=== PATIENT | female | born 1965 | race African-American/Black ===

== ENCOUNTER 2017-02-03 21:53 | Emergency (ER) | payer SELFPAY ==
[~2017-02-03] VITALS: Ht 167.6 cm; Wt 86.5 kg
[2017-02-04] MEDS ORDERED: BACITRACIN ZINC OINT UDPKT TOP ONE (01:00)
[2017-02-04] MEDS ORDERED: HYDROCODONE/ACETAMINOPHEN 5/325MG TABLET PO ONE (01:00)
[2017-02-04] MEDS ORDERED: TETANUS, DIPHTHERIA, PERTUSSIS VAC/PF 0.5ML (>7YR OLD) IM ONE (01:00)
[2017-02-04] MEDS ORDERED: LIDOCAINE HCL/EPINEPHRINE 1%-EPI 1:100,000 20 ML VIAL MC ONE (01:00)
[2017-02-04 07:45] VITALS: BP 118/67
[2017-02-04 08:10] LABS: BASOPHILS % 0.3 % (0.0-2.0); EOSINOPHILS % 0.5 % (0.0-5.0); HEMATOCRIT. 38.7 % (36.0-48.0); HEMOGLOBIN. 12.7 g/dL (12.0-16.0); LYMPHOCYTES % 30.5 % (20.0-50.0); MEAN CORPUSCULAR HEMOGLOBIN 27.9 pg (28.0-32.0); MEAN CORPUSCULAR HGB CONC 32.8 g/dL (31.0-37.0); MEAN CORPUSCULAR VOLUME 85.3 fL (81.0-99.0); MEAN PLATELET VOLUME 8.5 fl (7.4-10.4); NEUTROPHILS % 60.7 % (40.0-76.0); PLATELET 213 x1000/uL (130-400); RED BLOOD CELL COUNT 4.54 mill/uL (4.2-5.4); RED CELL DISTRIBUTION WIDTH 13.4 % (11.6-14.6); WHITE BLOOD COUNT 7.1 x1000/uL (4.5-11.0)
[2017-02-04 08:18] LABS: CHLORIDE 110 mEq/L (98-107); INDEX HEMOLYSI 1 (1-3); INDEX ICTERIC 1 (1-4); INDEX LIPEMIC 1 (1-3)
[2017-02-04 08:25] LABS: ALANINE AMINOTRANSFERASE 27 IU/L (13-61); ALBUMIN 3.6 g/dL (3.4-5.0); ANION GAP 10; CALCIUM 8.5 mg/dL (8.5-10.1); CARBON DIOXIDE 27 mEq/L (21-32); UREA NITROGEN BLOOD 19 mg/dL (7-21); eGFR > 60 mL/min (>60)
[2017-02-04 08:50] LABS: HEPATITIS B SURFACE ANTIGEN NEGATIVE
[2017-02-04 09:18] LABS: HEPATITIS C VIR.AB 0.15 INDEXVAL (0.00-0.80)
[2017-02-04 09:20] LABS: HEPATITIS A AB IGM NEGATIVE (NEGATIVE)
[2017-02-04 20:46] LABS: HEPATITIS B CORE AB IGM NEGATIVE
== END 2017-02-04 09:01 | disposition left against medical advice (07) ==
LOC: ER 21:56
DX: S41.112A Laceration without foreign body of left upper arm, initial encounter (principal); F17.200 Nicotine dependence, unspecified, uncomplicated; Z85.43 Personal history of malignant neoplasm of ovary; Y04.0XXA Assault by unarmed brawl or fight, initial encounter; Y93.89 Activity, other specified; Y92.89 Other specified places as the place of occurrence of the external cause; Y99.8 Other external cause status; Z98.890 Other specified postprocedural states
CPT/HCPCS: 12005; 36415; 80053; 85025; 86592; 86703; 87186; 90471; 90715; 99284; J3490; X7700; Z7610; 86705; 86709; 86803; 87340

== ENCOUNTER 2017-02-04 09:27 | Emergency (ER) | payer SELFPAY ==
[~2017-02-04] VITALS: Ht 167.6 cm; Wt 86.0 kg
[2017-02-04 09:35] VITALS: BP 134/79
== END 2017-02-04 11:36 | disposition left against medical advice (07) ==
LOC: ER 10:13
DX: Z76.0 Encounter for issue of repeat prescription (principal)
CPT/HCPCS: 99283